=== PATIENT | male | born 1945 | race Caucasian/White ===

== ENCOUNTER → 2016-08-24 | Outpatient (CLI) | payer MEDICARE, BC ==
[~2016-08-24] MED LIST: ASPIR 8181 MG PO; DEPO-TESTO100 MG/1 M IM; DIOVAN160 MG PO; GLUCOPHAGE500 MG PO; HYDROCHLOROTH12.5 MG PO; LANTUS100 UNIT/1 SUBCUT; LUTEIN6 M1 PO; SYMBICORT 160-4.6 GM INH; TESTOSTERO100 MG/1 M SUBCUT; ZOCOR40 MG PO; ZYLOPRIM300 MG PO
== END | disposition short-term general hospital (02) ==
LOC: CLCARD 11:20
DX: I10 Essential (primary) hypertension (principal); I73.9 Peripheral vascular disease, unspecified; E78.5 Hyperlipidemia, unspecified; E11.9 Type 2 diabetes mellitus without complications; I44.0 Atrioventricular block, first degree; R94.31 Abnormal electrocardiogram [ECG] [EKG]; Z82.49 Family history of ischemic heart disease and other diseases of the circulatory system; Z87.891 Personal history of nicotine dependence

== ENCOUNTER → 2016-09-14 | Outpatient (CLI) | payer MEDICARE, BC | END | disposition short-term general hospital (02) | LOC: CLCARD 10:43 | DX: I10 Essential (primary) hypertension (principal); I73.9 Peripheral vascular disease, unspecified; E78.5 Hyperlipidemia, unspecified; E11.9 Type 2 diabetes mellitus without complications; Z79.4 Long term (current) use of insulin; Z79.899 Other long term (current) drug therapy; Z87.891 Personal history of nicotine dependence ==